=== PATIENT | female | born 1960 | race Caucasian/White ===

== ENCOUNTER 2017-09-13 17:19 | Emergency (ER) | payer SELFPAY ==
[2017-09-13] MEDS ORDERED: ASPIRIN 81 MG TABLET, CHEWABLE PO ONE (17:37)
[2017-09-13] MEDS ORDERED: NITROGLYCERIN 0.4 MG/TAB 25 TAB/BOTTLE SL PRN (17:37)
--- NOTE | 2017-09-13 17:38 | ER Document Report ---
ED Medical Screen (RME) - General Mode of Arrival: Ambulatory Information source: Patient TRAVEL OUTSIDE OF THE [place] IN LAST 30 DAYS: No <MARIE LEA - Last Filed: 09/13/17 18:06> <DUDLEY POLANCO - Last Filed: 09/13/17 21:07> - General Chief Complaint: Palpitations Stated Complaint: DIARRHEA,WEAKNESS,SHORT OF BREATH Time Seen by Provider: 09/13/17 17:32 Notes: 57 y.o female with a PMHx of 2 bypass surgeries 11 years ago presents to the ED with heart fluttering. Pt states that her sx started having severe diarrhea yesterday and she started feeling her heart fluttering, SOB and weak. Hasnt had a heart cath since bypass. Last stress test was 3 years. ago. Pt reports a hx of IBS that usually presents with constipation with small bouts of diarrhea. She states that now her diarrhea is mostly water and that it does not bother her much while sitting still but when she gets up and moves around she starts having diarrhea again. (MARIE LEA) - Related Data Allergies/Adverse Reactions: methylphenidate [From Ritalin] Allergy (Verified 09/13/17 17:36) naproxen [From Naprosyn] Allergy (Verified 09/13/17 17:36) niacin Allergy (Verified 09/13/17 17:36) nitrofurantoin [From Macrodantin] Allergy (Verified 09/13/17 17:36) Tetracyclines Allergy (Verified 09/13/17 17:36) Past Medical History - General Information source: Patient - Social History Cigarette use (# per day): No Chew tobacco use (# tins/day): No Frequency of alcohol use: Rare Drug Abuse: None <MARIE LEA - Last Filed: 09/13/17 18:06> Review of Systems - Review of Systems Constitutional: No symptoms reported EENT: No symptoms reported Cardiovascular: See HPI, Palpitations - fluttering Respiratory: No symptoms reported Gastrointestinal: See HPI, Diarrhea Genitourinary: No symptoms reported Female Genitourinary: No symptoms reported Musculoskeletal: No symptoms reported Skin: No symptoms reported Hematologic/Lymphatic: No symptoms reported Neurological/Psychological: No symptoms reported -: Yes All other systems reviewed and negative <MARIE LEA - Last Filed: 09/13/17 18:06> Physical Exam <MARIE LEA - Last Filed: 09/13/17 18:06> <DUDLEY POLANCO - Last Filed: 09/13/17 21:07> - Vital signs Vitals: Temp Pulse Resp BP Pulse Ox 98.0 F 83 18 146/72 H 96 09/13/17 17:28 09/13/17 17:28 09/13/17 17:28 09/13/17 17:28 09/13/17 17:28 - Notes Notes: Physical Exam: General: Alert, appears well. HEENT: Normocephalic. Atraumatic. PERRLA. Extraocular movements intact. Neck: Supple. Respiratory: No respiratory distress. Abdominal: Normal Inspection. No distension. Extremities: Moves all four extremities. Neurological: Normal cognition. AAOx4. Normal speech. Psychological: Normal affect. Normal Mood. Skin: Warm. Dry. Normal color. (MARIE LEA) Course - Laboratory Result Diagrams: 09/13/17 18:05 09/13/17 18:05 <DUDLEY POLANCO - Last Filed: 09/13/17 21:07> - Vital Signs Vital signs: Temp Pulse Resp BP Pulse Ox 98.0 F 83 15 124/75 98 09/13/17 17:28 09/13/17 17:28 09/13/17 19:01 09/13/17 19:01 09/13/17 19:01 - Laboratory Laboratory results interpreted by me: 09/13/17 18:05 Glucose 129 H Magnesium 1.2 L* Doctor's Discharge <MARIE LEA - Last Filed: 09/13/17 18:06> <DUDLEY POLANCO - Last Filed: 09/13/17 21:07> - Discharge Referrals: DORCAS CLARK MD [Primary Care Provider] - Follow up as needed Scribe Documentation - Scribe Written by Rich:: Rich Alfredo 09/13/17 [id number] acting as scribe for :: Taryn <MARIE LEA - Last Filed: 09/13/17 18:06>
--- NOTE | 2017-09-13 18:29 | RADIOLOGY REPORT (SQ) ---
EXAM DESCRIPTION: CHEST SINGLE VIEW COMPLETED DATE/TIME: 09/13/2017 6:15 pm REASON FOR STUDY: chest pain, palpitations COMPARISON: 2006. NUMBER OF VIEWS: One view. TECHNIQUE: Single frontal radiographic view of the chest acquired. LIMITATIONS: None. FINDINGS: LUNGS AND PLEURA: No opacities, masses or pneumothorax. No pleural effusion. MEDIASTINUM AND HILAR STRUCTURES: Stable contours. Status post CABG with intact sternal wires. HEART AND VASCULAR STRUCTURES: Heart normal in size. Normal vasculature. BONES: No acute findings. HARDWARE: None in the chest. OTHER: No other significant finding. IMPRESSION: NO SIGNIFICANT RADIOGRAPHIC FINDING IN THE CHEST. TECHNICAL DOCUMENTATION: JOB ID: [id number]- All Rights Reserved Reading location - IP/workstation name: [email or web address]
[2017-09-13 18:31] LABS: ABSOLUTE LYMPHOCYTES (AUTO) 1.2 10^3/uL (0.5-4.7); ABSOLUTE NEUT (AUTO) 5.9 10^3/uL (1.7-8.2); BASOPHILS % (AUTO) 0.5 % (0-2); EOSINOPHILS % (AUTO) 0.6 % (0-6); HEMATOCRIT 36.6 % (36.0-47.0); HEMOGLOBIN 12.5 g/dL (12.0-15.5); LYMPHOCYTES % (AUTO) 14.6 % (13-45); MEAN CORPUSCULAR HGB CONC 34.2 g/dL (32.0-36.0); MEAN CORPUSCULAR VOLUME 91 fl (80-97); MONOCYTES % (AUTO) 11.8 % (3-13); PLATELET COUNT 224 10^3/uL (150-450); RED BLOOD COUNT 4.04 10^6/uL (3.72-5.28); RED CELL DISTRIBUTION WIDTH 13.8 % (11.5-14.0); SEGMENTED NEUTROPHILS % (AUTO) 72.5 % (42-78); TOTAL CELLS COUNTED % (AUTO) 100 %; WHITE BLOOD COUNT 8.2 10^3/uL (4.0-10.5)
[2017-09-13 18:47] LABS: ALANINE AMINOTRANSFERASE 36 U/L (9-52); ALKALINE PHOSPHATASE 84 U/L (38-126); ANION GAP 16 (5-19); ASPARTATE AMINO TRANSFERASE 25 U/L (14-36); BILIRUBIN,DIRECT 0.4 mg/dL (0.0-0.4); BILIRUBIN,TOTAL 0.7 mg/dL (0.2-1.3); BLOOD UREA NITROGEN 15 mg/dL (7-20); CALCIUM 9.2 mg/dL (8.4-10.2); CARBON DIOXIDE 23 mmol/L (22-30); CHLORIDE 99 mmol/L (98-107); CREATINE KINASE 35 U/L (30-135); GLUCOSE 129 mg/dL (75-110); POTASSIUM 3.6 mmol/L (3.6-5.0); SODIUM 138.3 mmol/L (137-145)
[2017-09-13 18:59] LABS: CREATINE KINASE MB < 0.22 ng/mL (<4.55); TROPONIN I < 0.012 ng/mL
[2017-09-13] MEDS ORDERED: POTASSIUM CHLORIDE 20 MEQ/15 ML UDCUP PO ONE (20:20)
[2017-09-13] MEDS: MAGNESIUM SULFATE/D5W 1 GM/100 ML RTUPB IV SCH ×3 (20:45→21:52)
--- NOTE | 2017-09-13 20:59 | ER Document Report ---
ED GI/ - General Mode of Arrival: Ambulatory Information source: Patient TRAVEL OUTSIDE OF THE [place] IN LAST 30 DAYS: No <ALTHEA HAHN - Last Filed: 09/13/17 23:01> <SERVANDO GARDNER - Last Filed: 09/22/17 07:46> - General Chief Complaint: Palpitations Stated Complaint: DIARRHEA,WEAKNESS,SHORT OF BREATH Time Seen by Provider: 09/13/17 17:32 Notes: Patient is a 57-year-old female who presents to the emergency department today with complaints of intermittent diarrhea off and on since April. Patient states her diarrhea became "severe" yesterday. Patient states that she also developed heart palpitations yesterday with associated shortness of breath. Patient has had nausea with associated sweats and chills. Patient denies any vomiting, black or red in her diarrhea, chest pain, or usage of blood thinners. (ALTHEA HAHN) - Related Data Allergies/Adverse Reactions: methylphenidate [From Ritalin] Allergy (Verified 09/13/17 17:36) naproxen [From Naprosyn] Allergy (Verified 09/13/17 17:36) niacin Allergy (Verified 09/13/17 17:36) nitrofurantoin [From Macrodantin] Allergy (Verified 09/13/17 17:36) Tetracyclines Allergy (Verified 09/13/17 17:36) Past Medical History - General Information source: Patient - Social History Smoking Status: Never Smoker Cigarette use (# per day): No Chew tobacco use (# tins/day): No Frequency of alcohol use: Rare Drug Abuse: None Lives with: Family Family History: Reviewed & Not Pertinent Patient has suicidal ideation: No Patient has homicidal ideation: No - Medical History Medical History: Negative Renal/ Medical History: Denies: Hx Peritoneal Dialysis Surgical Hx: Negative <ALTHEA HAHN - Last Filed: 09/13/17 23:01> Review of Systems - Review of Systems Constitutional: See HPI, Chills, Diaphoresis EENT: No symptoms reported Cardiovascular: See HPI, Palpitations Respiratory: See HPI, Short of breath Gastrointestinal: See HPI, Diarrhea, Nausea. denies: Vomiting, Black stools Genitourinary: No symptoms reported Female Genitourinary: No symptoms reported Musculoskeletal: No symptoms reported Skin: No symptoms reported Hematologic/Lymphatic: No symptoms reported Neurological/Psychological: No symptoms reported -: Yes All other systems reviewed and negative <ALTHEA HAHN - Last Filed: 09/13/17 23:01> Physical Exam <SELMAALTHEA - Last Filed: 09/13/17 23:01> <SERVANDO GARDNER Gisell - Last Filed: 09/22/17 07:46> - Vital signs Vitals: Temp Pulse Resp BP Pulse Ox 98.0 F 83 18 146/72 H 96 09/13/17 17:28 09/13/17 17:28 09/13/17 17:28 09/13/17 17:28 09/13/17 17:28 - Notes Notes: Physical Exam: General: Alert, appears well. HEENT: Normocephalic. Atraumatic. PERRL. Extraocular movements intact. Oropharynx clear. Neck: Supple. Non-tender. Respiratory: No respiratory distress. Clear and equal breath sounds bilaterally. Cardiovascular: Regular rate and rhythm. Abdominal: Normal Inspection. Non-tender. No distension. Normal Bowel Sounds. Back: Non-tender. No deformity or step off. Extremities: Moves all four extremities. Upper extremities: Normal inspection. Normal ROM. Lower extremities: Normal inspection. No edema. Normal ROM. Neurological: Normal cognition. AAOx4. Normal speech. Psychological: Normal affect. Normal Mood. Skin: Warm. Dry. Normal color. (ALTHEA HAHN) Course - Laboratory Result Diagrams: 09/13/17 18:05 09/13/17 18:05 <ALTHEA HAHN - Last Filed: 09/13/17 23:01> - Laboratory Result Diagrams: 09/13/17 18:05 09/13/17 18:05 <SERVANDO GARDNER Gisell - Last Filed: 09/22/17 07:46> - Re-evaluation Re-evalutation: 09/13/17 22:13 Patient has hypomagnesemia with normal low potassium levels. Both of these were replenished in the emergency department. Fluids were also provided. CT abdomen shows fluid in the colon consistent with diarrhea with mild ileus but no other concerning findings. Patient states that she felt palpitations but none has been caught during observation. In the emergency department on telemetry. With her low magnesium that could have called palpitations or PVCs but her rate electrolytes have been replenished in the emergency department. Patient will be discharged with instructions to use Pepto-Bismol for diarrhea. Will also prescribe antiemetics. Return precautions provided 09/13/17 22:43 Patient upright in bed well-appearing states that she is feeling better (SERVANDO GARDNER) - Vital Signs Vital signs: Temp Pulse Resp BP Pulse Ox 98.8 F 83 21 H 124/59 L 99 09/13/17 23:01 09/13/17 17:28 09/14/17 00:00 09/13/17 23:01 09/14/17 00:00 - Laboratory Laboratory results interpreted by me: 09/13/17 18:05 Glucose 129 H Magnesium 1.2 L* Discharge <ALTHEA HAHN - Last Filed: 09/13/17 23:01> <SERVANDO GARDNER - Last Filed: 09/22/17 07:46> - Discharge Clinical Impression: Diarrhea Qualifiers: Diarrhea type: unspecified type Qualified Code(s): R19.7 - Diarrhea, unspecified Condition: Good Disposition: HOME, SELF-CARE Instructions: Diarrhea, Nonspecific ([facility]) Additional Instructions: Please use [id number] Pepto-Bismol as directed on bottle for diarrhea. If you develop any fevers greater than 100.5 or worsening symptoms please return to emergency department Prescriptions: Promethazine HCl 25 mg PO TID PRN #20 tablet PRN Reason: Referrals: DORCAS CLARK MD [Primary Care Provider] - Follow up as needed Scribe Attestation: 09/22/17 07:46 I personally performed the services described in the documentation, reviewed and edited the documentation which was dictated to the scribe in my presence, and it accurately records my words and actions. (SERVANDO GARDNER) Scribe Documentation - Scribe Written by Rich:: Rich Walton, 09/13/2017 [id number] acting as scribe for :: Harish <ALTHEA HAHN - Last Filed: 09/13/17 23:01>
--- NOTE | 2017-09-13 22:03 | RADIOLOGY REPORT (SQ) ---
EXAM DESCRIPTION: CT ABD/PELVIS WITH IV ONLY COMPLETED DATE/TIME: 09/13/2017 9:41 pm REASON FOR STUDY: LLQ pain, diarrhea COMPARISON: None. TECHNIQUE: CT scan of the abdomen and pelvis performed using helical scanning technique with dynamic intravenous contrast injection. No oral contrast. Images reviewed with lung, soft tissue, and bone windows. Reconstructed coronal and sagittal MPR images reviewed. Delayed images for evaluation of the urinary system also acquired. All images stored on PACS. All CT scanners at this facility use dose modulation, iterative reconstruction, and/or weight based d osing when appropriate to reduce radiation dose to as low as reasonably achievable (ALARA). [facility]: Dose Right [facility]: CareDose [facility]: Dose Right [facility]: Teradose 4D [facility]: [email or web address] CONTRAST TYPE AND DOSE: contrast/concentration: Isovue 370.00 mg/ml; Total Contrast Delivered: 76.0 ml; Total Saline Delivered: 67.0 ml RENAL FUNCTION: GFR > 60. RADIATION DOSE: CT Rad equipment meets quality standard of care and radiation dose reduction techniq ues were employed. CTDIvol: 6.6 - 9.2 mGy. DLP: 822 mGy-cm.. LIMITATIONS: None. FINDINGS: LOWER CHEST: No significant findings. No nodules or infiltrates. LIVER: Fatty. SPLEEN: Normal size. No focal lesions. PANCREAS: No masses. No significant calcifications. No adjacent inflammation or peripancreatic fluid collections. Pancreatic duct not dilated. GALLBLADDER: Absent. ADRENAL GLANDS: No significant masses or asymmetry. RIGHT KIDNEY AND URETER: Upper pole nephrolithiasis, 7 mm stone likely within a caliceal diverticulum . Hounsfield units under 600. No hydronephrosis. No ureteral stones. No mass. LEFT KIDNEY AND URETER: No solid masses. No significant calcification. No hydronephrosis or hydrouret er. AORTA AND VESSELS: Atherosclerotic. No dissection or aneurysm. No arterial occlusion. No venous cl ot. RETROPERITONEUM: No retroperitoneal adenopathy, hemorrhage or masses. BOWEL AND PERITONEAL CAVITY: Fluid throughout the colon. Fluid throughout mildly distended distal sm all bowel without mechanical obstruction evident. No abnormal gas. No ascites. APPENDIX: Normal. PELVIS: No mass. No free fluid. Normal bladder. ABDOMINAL WALL: No masses. No hernias. BONES: No significant or acute findings. OTHER: No other significant finding. IMPRESSION: 1. Fluid throughout the colon consistent with history of diarrhea. 2. Mild ileus, flui d-filled distal small bowel loops without obstruction. 3. Right nephrolithiasis without obstruction. TECHNICAL DOCUMENTATION: JOB ID: [id number] Quality ID # [id number]: Final reports with documentation of one or more dose reduction techniques (e.g., Au tomated exposure control, adjustment of the mA and/or kV according to patient size, use of iterative reconstruction technique) 2010 [employer]- All Rights Reserved Reading location - IP/workstation name: [email or web address]
[2017-09-13] MEDS ORDERED: RINGERS SOLUTION,LACTATED 1,000 ML IV ONE (22:45)
[2017-09-14 00:20] VITALS: BP 124/59
--- NOTE | 2017-09-14 09:37 | EKG REPORT ---
SEVERITY:- ABNORMAL ECG - SINUS TACHYCARDIA VENTRICULAR BIGEMINY CONSIDER LEFT VENTRICULAR HYPERTROPHY : Confirmed by: Danielle Centeno 14-Sep-2017 09:36:30
--- NOTE | 2017-09-14 09:38 | EKG REPORT ---
SEVERITY:- ABNORMAL ECG - SINUS TACHYCARDIA VENTRICULAR PREMATURE COMPLEX BORDERLINE INFERIOR Q WAVES NONSPECIFIC T ABNORMALITIES, ANTERIOR LEADS : Confirmed by: Danielle Centeno 14-Sep-2017 09:36:51
== END 2017-09-14 00:26 | disposition home or self-care (01) ==
LOC: ER 17:19
DX: R19.7 Diarrhea, unspecified (principal); R00.2 Palpitations; R53.1 Weakness; R06.02 Shortness of breath; R11.0 Nausea; R61 Generalized hyperhidrosis
CPT/HCPCS: 93005; 99285; 96361; 96365; 96366; 36415; 82553; 82550; 83735; 85025; 80053; 84484; 71045; 74177; 93010; J3475; J7120